=== PATIENT | male | born 1945 | race Caucasian/White ===

== ENCOUNTER 2021-07-25 14:37 | Outpatient (CLI) | payer MEDICARE, MEDICAID | END 2021-07-25 14:38 | disposition critical access hospital (66) | LOC: EMS 14:37 | DX: U07.1 COVID-19 (principal) | CPT/HCPCS: A0425; A0429 ==

== ENCOUNTER 2021-07-25 15:00 | Emergency (ER) | payer MEDICARE, MEDICAID ==
[2021-07-25 15:57] LABS: BASOPHILS % (AUTO) 0.2 %; HCT - HEMATOCRIT 40.6 % (42.0-52.0); HGB - HEMOGLOBIN 13.9 g/dL (14.0-18.0); LYMPHOCYTES # (AUTO) 0.4 10^3/uL (1.5-3.5); LYMPHOCYTES % (AUTO) 9.6 %; MEAN CORPUSCULAR HEMOGLOBIN 29.4 pg (27.0-31.0); MEAN CORPUSCULAR HGB CONC 34.2 g/dL (32.0-36.0); MEAN PLATELET VOLUME 9.9 fL (7.4-11.4); MONOCYTES # (AUTO) 0.4 10^3/uL (0.0-1.0); MONOCYTES % (AUTO) 9.4 %; NEUTROPHILS # (AUTO) 3.4 10^3/uL (1.5-6.6); NEUTROPHILS % (AUTO) 80.3 %; PLT - PLATELET COUNT 168 10^3/uL (130-450); RED BLOOD COUNT 4.72 10^6/uL (4.70-6.10); RED CELL DISTRIBUTION WIDTH 12.6 % (12.0-15.0); WHITE BLOOD COUNT 4.2 x10^3/uL (4.8-10.8)
[2021-07-25 16:06] LABS: ALBUMIN 3.6 g/dL (3.2-5.5); ALBUMIN/GLOBULIN RATIO 1.1 (1.0-2.2); BILIRUBIN,TOTAL 0.9 mg/dL (0.2-1.0); CALCIUM 8.8 mg/dL (8.5-10.3); TOTAL PROTEIN 6.9 g/dL (6.7-8.2)
--- NOTE | 2021-07-25 16:12 | ED Physician Documentation ---
History of Present Illness - Stated complaint Stated Complaint: C+/NVD - Chief complaint Chief Complaint: General - History obtained from History obtained from: Family, Caregiver - History of Present Illness Timing: How many weeks ago (1) - Additonal information Additional information: 75-year-old male with a history of advanced dementia is a resident of [facility] and over the past week he has contracted Covid. He has now developed diarrhea and vomiting and [facility] with concerns of dehydration. Review of Systems Unable to obtain: Confused, Dementia PD PAST MEDICAL HISTORY - Past Medical History Cardiovascular: Hypertension Neuro: Alzhiemer's, Dementia Endocrine/Autoimmune: Type 2 diabetes - Social History Does the pt smoke?: No Smoking Status: Never smoker PD ED PE NORMAL - Vitals Vital signs reviewed: Yes (tachypneic and hypertensive ) - General General: No acute distress, Well developed/nourished, Other (mumbles a few words only not intelligeble ) - HEENT HEENT: Atraumatic, PERRL, EOMI - Neck Neck: Supple, no meningeal sign - Cardiac Cardiac: RRR, No murmur - Respiratory Respiratory: No respiratory distress, Other (faint insp wheeze scattered) - Abdomen Abdomen: Soft, Non tender - Back Back: No CVA TTP, No spinal TTP - Derm Derm: Normal color, Warm and dry, No rash - Extremities Extremities: No deformity, No edema - 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, No motor deficit, Other (mumbles ) Eye Opening: Spontaneous Motor: Obeys Commands Verbal: Inappropriate GCS Score: 13 Results - Vitals Vitals: Vital Signs - 24 hr 07/25/21 07/25/21 07/25/21 15:10 15:42 17:04 Temperature 37.3 C Heart Rate 75 80 85 Respiratory 26 H 33 H 17 Rate Blood Pressure 130/83 H 137/74 H 117/74 O2 Saturation 100 95 96 Oxygen O2 Source Nasal cannula Oxygen Flow Rate 2 - Labs Labs: Laboratory Tests 07/25/21 07/25/21 15:10 15:10 WBC 4.2 L RBC 4.72 Hgb 13.9 L Hct 40.6 L MCV 86.0 MCH 29.4 MCHC 34.2 RDW 12.6 Plt Count 168 MPV 9.9 Neut # (Auto) 3.4 Lymph # (Auto) 0.4 L Evans # (Auto) 0.4 Eos # (Auto) 0.0 Baso # (Auto) 0.0 Absolute Nucleated RBC 0.00 Nucleated RBC % 0.0 Sodium 137 Potassium 4.0 Chloride 101 Carbon Dioxide 25 Anion Gap 11.0 BUN 13 Creatinine 1.0 Estimated GFR (MDRD) 73 L Glucose 239 H Calcium 8.8 Total Bilirubin 0.9 AST 35 ALT 25 Alkaline Phosphatase 52 Total Protein 6.9 Albumin 3.6 Globulin 3.3 Albumin/Globulin Ratio 1.1 Lipase 31 - Rads (name of study) chest Radiology: Prelim report reviewed (Impression: No acute process.), EMP read indepedently, See rad report Procedures - IVC sono (time) 1605 Bedside IVC sono: IVC measures (cm) (0.65), IVC collapsed c insp (cm) (complete), Significant dehydration (est 3 liter deficit) PD MEDICAL DECISION MAKING - ED course Complexity details: reviewed results, re-evaluated patient, considered differential, d/w family ED course: 75-year-old male with advanced dementia presents with home from [facility] with Covid and gastroenteritis with dehydration. We initially began to gain IV access and perform laboratory studies and imaging studies and with this patient's advanced dementia I had a conversation with the patient's family regarding treatment. I spoke with the patient's son Lakhwinder and with the patient's Clarissa. The patient does not appear to be currently suffering. He appears comfortable without pain without any specific complaints. His POLST form shows administration of IV fluids for comfort measures. When I began to talk about treatment of the COVID with monoclonal antibody the family was against this as they did not want to interrupt nature if this was going to happen. The patient is not immunized and does not appear hypoxic. His chest x-ray is with minimal infiltrate. His level of dehydration is significant representing about a 3 liter deficit. In my conversation with the family I indicated that dying from dehydration would be peaceful. Both the and son were relieved to hear that we did not have to give Scott IV fluid. I felt it was the right thing to do and I got agreement with the son, the and the school administrator at [facility] ([facility]). They will take him back and not force fluids. Departure - Departure Disposition: 01 Home, Self Care Clinical Impression: Dehydration determined by examination, COVID-19 Condition: Stable Follow-Up: Your, doctor [Other] Comments: Scott is significantly dehydrated and I have spoken with family, both Clarissa and Lakhwinder. They would like to let nature take its course and allow Scott to pass peacefully. Do not force fluids on Scott. Discharge Date/Time: 07/25/21 17:48
--- NOTE | 2021-07-25 16:33 | XRAY Report ---
PROCEDURE: Chest 1 View X-Ray INDICATIONS: chest pain TECHNIQUE: One view of the chest was acquired. COMPARISON: None FINDINGS: Surgical changes and devices: None. Lungs and pleura: No pleural effusions or pneumothorax. Lungs are clear. Mediastinum: Mediastinal contours appear normal. Heart size is normal. Bones and chest wall: No suspicious bony lesions. Overlying soft tissues appear unremarkable. IMPRESSION: No acute process. Reviewed by: Beatris Dubois MD on 07/25/2021 4:32 PM [facility] [[email or web address]] Approved by: Beatris Dubois MD on 07/25/2021 4:32 PM [facility] [[email or web address]] Station ID: [id number]
[2021-07-25 17:05] VITALS: BP 117/74
== END 2021-07-25 17:48 | disposition home or self-care (01) ==
LOC: ED 15:00
DX: U07.1 COVID-19 (principal); E86.0 Dehydration; K52.9 Noninfective gastroenteritis and colitis, unspecified; I10 Essential (primary) hypertension; G30.9 Alzheimer's disease, unspecified; F02.80 Dementia in other diseases classified elsewhere, unspecified severity, without behavioral disturbance, psychotic disturbance, mood disturbance, and anxiety; E11.9 Type 2 diabetes mellitus without complications
CPT/HCPCS: 36415; 80053; 83690; 85025; 99281; 99284

== ENCOUNTER 2021-07-25 17:59 | Outpatient (CLI) | payer MEDICARE, MEDICAID | END 2021-07-25 18:00 | disposition home or self-care (01) | LOC: EMS 17:59 | PROVIDERS: ATTEND Emergency Medicine | DX: U07.1 COVID-19 (principal); F03.90 Unspecified dementia, unspecified severity, without behavioral disturbance, psychotic disturbance, mood disturbance, and anxiety; E86.0 Dehydration; R41.0 Disorientation, unspecified; R53.83 Other fatigue | CPT/HCPCS: A0425; A0428 ==